=== PATIENT | male | born 1965 | race African-American/Black ===

== ENCOUNTER 2016-04-13 12:26 | Emergency (ER) | payer OTHER ==
[~2016-04-13] VITALS: Ht 180.3 cm; Wt 102.8 kg
[~2016-04-13 12:26] MED LIST: AMOXICILLIN500 M1 PO; ASPIRIN E.C.81 M2 PO; ATARAX,VISTARIL25 MG PO; AUGMENTIN875 MG PO; GLUCOMETER; Habitrol,Nicoderm CQ TD; KEFLEX500 MG PO; KOMBIGLYZE XR1 EAC1 PO; LANTUS 3 M100 UNITS/ SC; LOVASA PO; MOBIC15 MG PO; MOTRIN800 MG PO; NAPROSYN500 MG PO; Novolog 100 units/ml SC; PEN-VEE K,VEET500 MG PO; PEPCID40 MG PO; PREDNISONE10 MG PO; PROVENTIL,200 INHALA IH; Tricor PO; Tylenol Regular Stre PO; ULTRAM50 MG PO; ZESTRIL,PRINIVI10 M1 PO; Zocor PO; [UNRECOGNIZED DRUG - SUPPLY]
[2016-04-13] MEDS ORDERED: GLYBURIDE-METF1 EAC3 PO (15:03)
[2016-04-13] MEDS ORDERED: LANTUS 3 M100 UNITS1 SC (15:03)
[2016-04-13] MEDS ORDERED: ATORVASTATIN CA10 MG PO (15:04)
[2016-04-13] MEDS ORDERED: LIDOCAINE HCL20 ML MM (15:34)
[2016-04-13] MEDS ORDERED: TRAMADOL HCL50 MG PO (15:34)
[2016-04-13 15:58] VITALS: BP 117/74
== END 2016-04-13 15:59 | disposition home or self-care (01) ==
LOC: EME 12:26
DX: S00.502A Unspecified superficial injury of oral cavity, initial encounter (principal); X58.XXXA Exposure to other specified factors, initial encounter; J02.9 Acute pharyngitis, unspecified; E11.9 Type 2 diabetes mellitus without complications; Z79.4 Long term (current) use of insulin; F17.200 Nicotine dependence, unspecified, uncomplicated
CPT/HCPCS: 99281; 99283